=== PATIENT | female | born 1950 | race African-American/Black ===

== ENCOUNTER 2017-12-07 09:50 | Outpatient (CLI) | payer MEDICARE ==
--- NOTE | 2017-12-07 15:43 | MMO ---
MAMMOGRAM DIGITAL SCREENING BILATERAL: DATE: 12/07/17 HISTORY: 67-year-old female for routine bilateral screening mammogram. COMPARISON: 03/09/15 and 11/16/11. TECHNIQUE: Digital mammographic views. Computer-aided detection (CAD) utilized. FINDINGS: Breast density: Heterogeneously dense, which could obscure a small mass. Visible only on the current RCC projection, there is a small focal asymmetry in the outer aspect of t he right breast, located approximately 6 cm from the nipple, and 3 cm lateral to the nipple axis. Thi s is not identified on the RMLO view, or on any of the previous mammograms. This could be summation s hadowing artifact, but additional views are recommended to rule out a true lesion. IMPRESSION: 1. BIRADS category 0 - Incomplete. Need additional imaging evaluation. 2. Recommend additional mammographic views of the right breast. Right breast ultrasound should also be performed, if needed, on the same date. 3D breast tomosynthesi s is strongly recommended. 3. This facility will arrange for the additional imaging. MAIKEL Beavers POS: AMAURY
== END 2017-12-07 09:51 | disposition home or self-care (01) ==
LOC: SCSMAMMO 09:50
PROVIDERS: ATTEND Family Medicine
DX: Z12.31 Encounter for screening mammogram for malignant neoplasm of breast (principal)
CPT/HCPCS: 77067

== ENCOUNTER 2017-12-13 10:33 | Outpatient (CLI) | payer MEDICARE | END 2017-12-13 10:34 | disposition home or self-care (01) | LOC: BICMAMMO 10:33 | PROVIDERS: ATTEND Family Medicine | DX: N63.10 Unspecified lump in the right breast, unspecified quadrant (principal) | CPT/HCPCS: 77065; G0279 ==

== ENCOUNTER 2019-04-12 13:51 | Outpatient (CLI) | payer MEDICARE ==
--- NOTE | 2019-04-12 14:46 | MMO ---
Bilateral MAMMO Bilat Screen [facility]. CLINICAL HISTORY: Patient is 69 years old and is seen for screening. The patient has the following family history of breast cancer: cousin gender unknown. The patient has no personal history of cancer. VIEWS: The views performed were: bilateral craniocaudal with tomosynthesis and bilateral mediolateral oblique with tomosynthesis. FILMS COMPARED: The present examination has been compared to prior imaging studies performed at [facility] on 12/07/2017, at [facility] on 12/13/2017, and at [facility] on 11/16/2011 and 03/09/2015. MAMMOGRAM FINDINGS: The breasts are heterogeneously dense, which could obscure a lesion on mammography. There are no suspicious masses, suspicious calcifications, or new areas of architectural distortion. IMPRESSION: THERE IS NO MAMMOGRAPHIC EVIDENCE OF MALIGNANCY. A ROUTINE FOLLOW-UP MAMMOGRAM IN 1 YEAR IS RECOMMENDED. THE RESULTS OF THIS EXAM WERE SENT TO THE PATIENT. ACR BI-RADS Category 1 - Negative MAMMOGRAPHY NOTE: 1. A negative mammogram report should not delay a biopsy if a dominant of clinically suspicious mass is present. 2. Approximately 10% to 15% of breast cancers are not detected by mammography. 3. Adenosis and dense breasts may obscure an underlying neoplasm.
== END 2019-04-12 13:52 | disposition home or self-care (01) ==
LOC: BICMAMMO 13:51
PROVIDERS: ATTEND Family Medicine
DX: Z12.31 Encounter for screening mammogram for malignant neoplasm of breast (principal); Z80.3 Family history of malignant neoplasm of breast
CPT/HCPCS: 77063; 77067

== ENCOUNTER 2020-04-30 10:50 | Outpatient (CLI) | payer MEDICARE ==
--- NOTE | 2020-04-30 11:36 | MMO ---
Bilateral MAMMO Bilat Screen [facility]. CLINICAL HISTORY: Patient is 70 years old and is seen for screening. The patient has the following family history of breast cancer: cousin gender unknown. The patient has no personal history of cancer. VIEWS: The views performed were: bilateral craniocaudal with tomosynthesis and bilateral mediolateral oblique with tomosynthesis. FILMS COMPARED: The present examination has been compared to prior imaging studies performed at [facility] on 12/07/2017, at [facility] on 12/13/2017 and 04/12/2019, and at [facility] on 03/09/2015. This study has been interpreted with the assistance of computer-aided detection. MAMMOGRAM FINDINGS: The breasts are heterogeneously dense, which could obscure a lesion on mammography. There are stable benign appearing calcifications seen in both breasts. There are no suspicious masses, suspicious calcifications, or new areas of architectural distortion. IMPRESSION: THERE IS NO MAMMOGRAPHIC EVIDENCE OF MALIGNANCY. A ROUTINE FOLLOW-UP MAMMOGRAM IN 1 YEAR IS RECOMMENDED. THE RESULTS OF THIS EXAM WERE SENT TO THE PATIENT. ACR BI-RADS Category 2 - Benign finding MAMMOGRAPHY NOTE: 1. A negative mammogram report should not delay a biopsy if a dominant of clinically suspicious mass is present. 2. Approximately 10% to 15% of breast cancers are not detected by mammography. 3. Adenosis and dense breasts may obscure an underlying neoplasm. Reported by: MERLENE MOBLEY MD Electonically Signed: [id number]
== END 2020-04-30 10:51 | disposition home or self-care (01) ==
LOC: BICMAMMO 10:50
PROVIDERS: ATTEND Family Medicine
DX: Z12.31 Encounter for screening mammogram for malignant neoplasm of breast (principal); Z80.3 Family history of malignant neoplasm of breast
CPT/HCPCS: 77063; 77067

== ENCOUNTER 2021-05-13 10:37 | Outpatient (CLI) | payer MEDICARE | END 2021-05-13 10:38 | disposition home or self-care (01) | LOC: BICMAMMO 10:37 | PROVIDERS: ATTEND Family Medicine | DX: Z12.31 Encounter for screening mammogram for malignant neoplasm of breast (principal) | CPT/HCPCS: 77063; 77067 ==

== ENCOUNTER 2022-05-18 09:46 | Outpatient (CLI) | payer MEDICARE | END 2022-05-18 09:47 | disposition home or self-care (01) | LOC: BICMAMMO 09:46 | PROVIDERS: ATTEND Family Medicine | DX: Z12.31 Encounter for screening mammogram for malignant neoplasm of breast (principal) | CPT/HCPCS: 77063; 77067 ==

== ENCOUNTER 2024-06-06 11:01 | Outpatient (CLI) | payer MEDICARE | END 2024-06-06 11:02 | disposition home or self-care (01) | LOC: BICMAMMO 11:01 | PROVIDERS: ATTEND Family Medicine | DX: Z12.31 Encounter for screening mammogram for malignant neoplasm of breast (principal); Z80.3 Family history of malignant neoplasm of breast | CPT/HCPCS: 77063; 77067 ==